=== PATIENT | female | born 1960 | race Caucasian/White ===

== ENCOUNTER → 2016-06-19 | Outpatient (CLI) | payer OTHER ==
[~2016-06-19] MED LIST: HYDROXYZINE HCL25 MG PO; NORCO 5-325 TA1 EACH PO; PRILOSEC OTC20 MG PO; ZYRTEC10 MG PO
== END ==
LOC: KOH-I 08:06
DX: M67.442 Ganglion, left hand (principal); R93.8 Abnormal findings on diagnostic imaging of other specified body structures
CPT/HCPCS: 73218

== ENCOUNTER → 2016-07-23 | Outpatient (CLI) | payer OTHER ==
[2016-07-23 09:20] LABS: HEMOGLOBIN 13.7 gm/dl (12.3-15.3); RED BLOOD COUNT 4.54 M/UL (4.00-5.10); WHITE BLOOD COUNT 7.8 K/UL (4.5-11.0)
[2016-07-23 09:31] LABS: BUN/CREATININE RATIO 26 (0-10)
== END ==
LOC: OPSV2 08:07
PROVIDERS: Orthopaedic Surgery
DX: Z01.812 Encounter for preprocedural laboratory examination (principal); M67.442 Ganglion, left hand
CPT/HCPCS: 80048; 85025

== ENCOUNTER → 2016-07-30 | Day surgery (SDC) | payer OTHER ==
[~2016-07-30] VITALS: Ht 170.2 cm; Wt 86.6 kg
== END | disposition home or self-care (01) ==
LOC: OR 06:19
PROVIDERS: Orthopaedic Surgery
PROC: 0LB80ZZ Excision of Left Hand Tendon, Open Approach (ICD-10-PCS; principal; 2016-07-30 11:45)
DX: M67.442 Ganglion, left hand (principal); K21.9 Gastro-esophageal reflux disease without esophagitis; J44.9 Chronic obstructive pulmonary disease, unspecified; F17.210 Nicotine dependence, cigarettes, uncomplicated; Z90.49 Acquired absence of other specified parts of digestive tract; Z90.710 Acquired absence of both cervix and uterus; Z79.899 Other long term (current) drug therapy; Z87.442 Personal history of urinary calculi
CPT/HCPCS: J0690; J1100; J1885; J2250; J2405; J2765; J3010; J7120

== ENCOUNTER → 2016-12-17 | Outpatient (CLI) | payer OTHER | LOC: CT 14:03 | DX: N28.89 Other specified disorders of kidney and ureter (principal); N20.0 Calculus of kidney | CPT/HCPCS: 74170; J7050; Q9965 ==